=== PATIENT | female | born 1995 | race Caucasian/White ===

== ENCOUNTER 2019-06-09 09:52 | Emergency (ER) | payer OTHER ==
[2019-06-09 10:30] LABS: URINE BLOOD (Dip) POC Negative (NEGATIVE); URINE GLUCOSE (Dip) POC Negative (NEGATIVE); URINE KETONES (Dip) POC Negative (NEGATIVE); URINE LEUKOCYTE EST (Dip) POC 1+ (NEGATIVE); URINE NITRITE (Dip) POC Negative (NEGATIVE); URINE TOTAL PROTEIN POC Negative (NEGATIVE)
[2019-06-09] MEDS: FAMOTIDINE 20 MG TAB PO (10:37)
[2019-06-09] MEDS: LIDOCAINE/MYLANTA 40 ML BTL PO (10:37)
== END 2019-06-09 11:46 | disposition home or self-care (01) ==
LOC: FTE 09:52
DX: R10.13 Epigastric pain (principal)
CPT/HCPCS: 81003; 81025; 99283